=== PATIENT | female | born 1985 | race Caucasian/White ===

== ENCOUNTER 2018-01-25 11:14 | Emergency (ER) | payer OTHER ==
[2018-01-25] MEDS ORDERED: ONDANSETRON 4 MG/2 ML VIAL ONE (12:49)
[2018-01-25] MEDS ORDERED: MORPHINE 10 MG/ML VIAL ONE (12:49)
[2018-01-25] MEDS ORDERED: NA CHLORIDE 0.9% 500 ML ONE (12:49)
--- NOTE | 2018-01-25 12:52 | RAD REPORT ---
EXAM DESCRIPTION: CT - Stone Protocol - 01/25/2018 12:43 pm CLINICAL HISTORY: Flank pain. COMPARISON: 06/30/2013 TECHNIQUE: Axial images were obtained without oral or IV contrast. Lack of contrast limits solid org an and vascular assessment. The [id number] spans the entirety of the system partially obscuring uppermost abdomen and lung bases. Coronal reformatted images were obtained and reviewed. All CT scans are performed using dose optimization technique as appropriate and may include automated exposure control or mA/KV adjustment according to patient size. FINDINGS: The lower lung fagan are clear. Imaged portions of the liver and spleen show no suspicious findings on non-contrast imaging. The panc reas and adrenal glands are normal.Small fat containing umbilical hernia. No pathologic lymphadenopat hy in the abdomen or pelvis. No urinary tract stones or obstructive uropathy. No bowel obstruction, free air, free fluid or abscess. Normal appendix noted. No significant bony abnormality. IMPRESSION: No urinary tract stones or obstructive uropathy.
[2018-01-25 13:09] LABS: Glomerular Filtration Rate > 60 mL/min (>60)
[2018-01-25 13:10] LABS: Absolute Monocytes 0.8 K/uL (0.1-1.3); Absolute Neutrophil 4.5 K/uL (1.8-8.0); Basophils % 0.6 % (0-1.3); Hematocrit 42.1 % (36.0-45.0); Lymphocytes % 26.8 % (15.3-44.8); MCH 28.2 pg (27.0-35.0); MCV 81.6 fL (80-100); MPV 8.4 fL (7.6-11.3); Monocytes % 10.6 % (3.3-12.3); RBC Red Blood Cell Count 5.16 M/uL (3.86-4.86)
[2018-01-25 13:11] LABS: Bicarbonate 26 mEq/L (21-31); Glucose Level 93 mg/dL (65-120); Lipase 22 U/L (22-51); Potassium 3.9 mEq/L (3.6-5.0); Sodium Level 136 mEq/L (135-145)
[2018-01-25 13:17] LABS: ALT/SGPT 16 IU/L (10-60); AST/SGOT 25 IU/L (10-42); Albumin 4.1 g/dL (3.2-5.5); Alkaline Phosphatase 66 IU/L (42-121); BUN Blood Urea Nitrogen 13 mg/dL (6-20); Bilirubin Direct < 0.1 mg/dL (0-0.2); Bilirubin Total 0.4 mg/dL (0.3-1.2); Glomerular Filtration Rate 67 mL/min (=/>90); Protein, Total 8.3 g/dL (6.0-8.3)
[2018-01-25 13:19] LABS: Urine Bacteria >50 /HPF (<20); Urine Culture Reflex Order NOT NEEDED
[2018-01-25 13:20] LABS: Urine Blood 2+ (NEG); Urine Glucose NEGATIVE (NEG); Urine Protein NEGATIVE (NEG)
--- NOTE | 2018-01-25 17:35 | EDPHYS ---
Physician Documentation [facility] Name: Yamileth Bashir Age: 32 yrs Sex: Female : 1985 Arrival Date: 01/25/2018 Time: 11:15 Bed 16 Private MD: ED Physician Quentin Beaulieu HPI: 01/25 13:59 This 32 yrs old Female presents to ER via Ambulatory with complaints of Flank rn Pain. 13:59 The patient complains of pain in the right mid back. The pain radiates to the pelvis. rn Onset: The symptoms/episode began/occurred this morning. Associated signs and symptoms: Pertinent positives: nausea, Pertinent negatives: diarrhea, dizziness, dysuria, fever, urinary frequency, hematuria. The patient has experienced a previous episode. Reports right flank pain, wraps around to right groin, intermittent since this AM, has had this once before, told was UTI, no urinary symptoms, no vomiting/diarrhea. Not , has had multiple ectopic pregnancies but has had right sided tubal ligation.. 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 - Social history:: Smoking status: Patient uses tobacco products, smokes one pack cigarettes per day. - Family history:: not pertinent. - Hospitalizations: : No recent hospitalization is reported. ROS: 14:01 Constitutional: Negative for fever, chills, and weight loss, Eyes: Negative for injury, rn pain, redness, and discharge, Neck: Negative for injury, pain, and swelling, Cardiovascular: Negative for chest pain, palpitations, and edema, Respiratory: Negative for shortness of breath, cough, wheezing, and pleuritic chest pain, Abdomen/GI: Negative for vomiting, diarrhea, and constipation, Back: Negative for injury MS/Extremity: Negative for injury and deformity, Skin: Negative for injury, rash, and discoloration, Neuro: Negative for headache, weakness, numbness, tingling, and seizure. Exam: 14:01 Constitutional: This is a well developed, well nourished patient who is awake, alert, rn appears uncomfortable Head/Face: Normocephalic, atraumatic. Eyes: Pupils equal round and reactive to light, extra-ocular motions intact. Lids and lashes normal. Conjunctiva and sclera are non-icteric and not injected. Cornea within normal limits. Periorbital areas with no swelling, redness, or edema. Cardiovascular: Regular rate and rhythm with a normal S1 and S2. No gallops, murmurs, or rubs. Normal PMI, no JVD. No pulse deficits. Respiratory: Lungs have equal breath sounds bilaterally, clear to auscultation and percussion. No rales, rhonchi or wheezes noted. No increased work of breathing, no retractions or nasal flaring. Abdomen/GI: soft, + tenderness RLQ and suprapubic, no peritoneal signs Back: No spinal tenderness. No costovertebral tenderness. Full range of motion. MS/ Extremity: Pulses equal, no cyanosis. Neurovascular intact. Full, normal range of motion. Equal circumference. Neuro: Awake and alert, GCS 15, oriented to person, place, time, and situation. Cranial nerves II-XII grossly intact. Motor strength 5/5 in all extremities. Sensory grossly intact. Vital Signs: 11:38 BP 128 / 76; Pulse 83; Resp 16; Temp 97.0(TE); Pulse Ox 98% on R/A; Weight 97.52 kg lk1 (R); Height 5 ft. 3 in. (160.02 cm) (R); Pain 4/10; 13:04 BP 117 / 76; Pulse 65; Resp 18; Pulse Ox 98% on R/A; dh3 13:48 BP 115 / 51; Pulse 58; Resp 18; Pulse Ox 99% on R/A; ph 15:00 BP 120 / 72; Pulse 60; Resp 16; Pulse Ox 98% on R/A; ph 16:30 BP 118 / 68; Pulse 65; Resp 20; Pulse Ox 98% on R/A; ph 18:10 BP 122 / 78; Pulse 64; Resp 18; Temp 98.2; Pulse Ox 99% on R/A; ph 11:38 Body Mass Index 38.09 (97.52 kg, 160.02 cm) lk1 MDM: 12:19 Patient medically screened. rn 17:32 Differential diagnosis: nephrolithiasis, UTI. Data reviewed: vital signs, nurses notes, charge rn test result(s), radiologic studies, CT scan, ultrasound, and as a result, I will discharge patient. Counseling: I had a detailed discussion with the patient and/or guardian regarding: the historical points, exam findings, and any diagnostic results supporting the discharge/admit diagnosis, lab results, radiology results, the need for outpatient follow up, to return to the emergency department if symptoms worsen or persist or if there are any questions or concerns that arise at home. Response to treatment: the patient's symptoms have markedly improved after treatment. Special discussion: I discussed with the patient/guardian in detail that at this point there is no indication for admission to the hospital. It is understood, however, that if the symptoms persist or worsen the patient needs to return immediately for re-evaluation. 01/25 11:34 Order name: Urine Culture formerly [facility] 01/25 11:34 Order name: Urine Microscopic Only; Complete Time: 14:02 [facility] 01/25 12:10 Order name: Urine Dipstick--Ancillary (enter results); Complete Time: 14:02 01/25 12:25 Order name: Basic Metabolic Panel; Complete Time: 14:02 01/25 12:25 Order name: Creatinine for Radiology; Complete Time: 14:02 01/25 12:25 Order name: Hepatic Function; Complete Time: 14:02 01/25 12:25 Order name: Lipase; Complete Time: 14:02 01/25 12:25 Order name: CT Stone Protocol; Complete Time: 12:55 01/25 12:37 Order name: CBC with Automated Diff; Complete Time: 14:02 [facility] 01/25 12:37 Order name: Hepatitis Panel,Acute [facility] 01/25 11:34 Order name: Urine Test (obtain specimen); Complete Time: 11:59 [facility] 01/25 11:34 Order name: Urine Dipstick-Ancillary (obtain specimen); Complete Time: 11:59 [facility] 01/25 12:25 Order name: IV Saline Lock; Complete Time: 12:29 01/25 12:25 Order name: Labs collected and sent; Complete Time: 12:29 01/25 14:06 Order name: Transvaginal Study Probe EDNJ Administered Medications: 12:55 Drug: morphine 4 mg Route: IVP; Site: left antecubital; ph 13:30 Follow up: Response: No adverse reaction ph 12:55 Drug: Zofran 4 mg Route: IVP; Site: left antecubital; ph 13:30 Follow up: Response: No adverse reaction ph 12:55 Drug: NS 0.9% 500 ml Route: IV; Rate: bolus; Site: left antecubital; ph 13:30 Follow up: Response: No adverse reaction; IV Status: Completed infusion ph Disposition: 01/25/18 17:34 Discharged to Home. Impression: Lower abdominal pain, unspecified. - Condition is Stable. - Discharge Instructions: Abdominal Pain, Adult, Flank Pain, Pain Without a Known Cause, Abdominal Pain, Women. - Medication Reconciliation Form, Thank You Letter, Antibiotic Education, Prescription Opioid Use form. - Follow up: Private Physician; When: As needed; Reason: Recheck today's complaints, Re-evaluation by your physician. - Problem is new. - Symptoms have improved. Signatures: Dispatcher [employer] EDMS Chika Avendaño, SPAGHETTI MACHINE OPERATOR-C SPAGHETTI MACHINE OPERATOR-Csnw Quentin Beaulieu MD MD rn Hall, Patricia RN RN Ellie Bardales RN RN lk1 Corrections: (The following items were deleted from the chart) 12:40 12:35 CBC+H.LAB.BRZ ordered. EDMS EDMS 12:40 12:37 Basic Metabolic Panel ordered. EDMS EDMS 12:40 12:37 Lipase ordered. EDMS EDMS 14:06 14:03 Pelvis Complete+US.RAD.BRZ ordered. EDMS EDMS
--- NOTE | 2018-01-25 17:35 | ER ---
Nurse's Notes [facility] Name: Yamileth Bashir Age: 32 yrs Sex: Female : 1985 Arrival Date: 01/25/2018 Time: 11:15 Bed 16 Private MD: Diagnosis: Lower abdominal pain, unspecified Presentation: 01/25 11:35 Presenting complaint: Patient states: "I am having pain back here (right flank) around lk1 to my lower stomach.". Transition of care: patient was not received from another setting of care. Initial Sepsis Screen: Does the patient meet any 2 criteria? No. Patient's initial sepsis screen is negative. Does the patient have a suspected source of infection? No. Patient initial sepsis screen negative. Onset of symptoms was January 25, 2018 at 09:00. Care prior to arrival: None. 11:35 Method Of Arrival: Ambulatory lk1 11:35 Acuity: SORAYA 3 lk1 Triage Assessment: 11:37 General: Appears uncomfortable, Behavior is calm, cooperative, appropriate for age. lk1 Pain: Complains of pain in right flank Pain radiates to suprapubic area and right lower quadrant Pain currently is 4 out of 10 on a pain scale. at worst was 8 out of 10 on a pain scale. 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 - Social history:: Smoking status: Patient uses tobacco products, smokes one pack cigarettes per day. - Family history:: not pertinent. - Hospitalizations: : No recent hospitalization is reported. Screenin:00 Abuse screen: Denies threats or abuse. Denies injuries from another. Nutritional ph screening: No deficits noted. Tuberculosis screening: No symptoms or risk factors identified. Fall Risk None identified. Assessment: 12:30 General: Appears in no apparent distress. uncomfortable, obese, well groomed, Behavior ph is calm, cooperative, appropriate for age, Denies fever, feeling ill. Pain: Complains of pain in right mid back and right low back Pain radiates to right lower quadrant and right flank Quality of pain is described as sharp, stabbing, Pain began suddenly, Is intermittent. Neuro: Level of Consciousness is awake, alert, obeys commands, Oriented to person, place, time, situation. Cardiovascular: Capillary refill < 3 seconds Patient's skin is warm and dry. Respiratory: Airway is patent Respiratory effort is even, unlabored, Respiratory pattern is regular, symmetrical. GI: Abdomen is round non-distended, Bowel sounds present X 4 quads. Abd is soft X 4 quads Abdomen is tender to palpation in right lower quadrant Reports lower abdominal pain, nausea, Patient currently denies diarrhea, vomiting. Derm: Skin is intact, is healthy with good turgor, Skin is pink, warm \\T\\ dry. Musculoskeletal: Circulation, motion, and sensation intact. Range of motion: intact in all extremities. 13:47 Reassessment: Patient appears in no apparent distress at this time. Patient and/or ph family updated on plan of care and expected duration. Pain level reassessed. Patient is alert, oriented x 3, equal unlabored respirations, skin warm/dry/pink. Pt states that nausea has improved, rates pain 5/10 at this time, awaiting lab results, SO at bedside. 15:00 Reassessment: Patient appears in no apparent distress at this time. Patient and/or ph family updated on plan of care and expected duration. Pain level reassessed. Patient is alert, oriented x 3, equal unlabored respirations, skin warm/dry/pink. taken to US via wheelchair, SO at bedside. 16:00 Reassessment: Patient appears in no apparent distress at this time. Patient and/or ph family updated on plan of care and expected duration. Pain level reassessed. Patient is alert, oriented x 3, equal unlabored respirations, skin warm/dry/pink. Awaiting US results, SO at bedside. 17:30 Reassessment: Patient appears in no apparent distress at this time. No changes from ph previously documented assessment. Patient and/or family updated on plan of care and expected duration. Pain level reassessed. Patient is alert, oriented x 3, equal unlabored respirations, skin warm/dry/pink. 18:30 Reassessment: Patient appears in no apparent distress at this time. No changes from ph previously documented assessment. Patient and/or family updated on plan of care and expected duration. Pain level reassessed. Patient is alert, oriented x 3, equal unlabored respirations, skin warm/dry/pink. Awaiting discharge. Vital Signs: 11:38 BP 128 / 76; Pulse 83; Resp 16; Temp 97.0(TE); Pulse Ox 98% on R/A; Weight 97.52 kg lk1 (R); Height 5 ft. 3 in. (160.02 cm) (R); Pain 4/10; 13:04 BP 117 / 76; Pulse 65; Resp 18; Pulse Ox 98% on R/A; dh3 13:48 BP 115 / 51; Pulse 58; Resp 18; Pulse Ox 99% on R/A; ph 15:00 BP 120 / 72; Pulse 60; Resp 16; Pulse Ox 98% on R/A; ph 16:30 BP 118 / 68; Pulse 65; Resp 20; Pulse Ox 98% on R/A; ph 18:10 BP 122 / 78; Pulse 64; Resp 18; Temp 98.2; Pulse Ox 99% on R/A; ph 11:38 Body Mass Index 38.09 (97.52 kg, 160.02 cm) lk1 ED Course: 11:15 Patient arrived in ED. as 11:36 Triage completed. lk1 11:39 Arm band placed on right wrist. lk1 11:59 Urine collected: clean catch specimen, clear. dh3 12:19 Quentin Beaulieu MD is Attending Physician. rn 12:28 Helena López RN is Primary Nurse. ph 12:41 CT completed. Patient tolerated procedure well. Patient moved to NC via wheelchair. jg1 Patient moved back from NC. 12:43 CT Stone Protocol In Process Unspecified. EDMS 12:45 Inserted saline lock: 20 gauge in left antecubital area, using aseptic technique. Blood ph collected. 12:59 Patient has correct armband on for positive identification. Bed in low position. Call ph light in reach. Side rails up X 1. Pulse ox on. NIBP on. Warm blanket given. 15:04 Transvaginal Study Probe In Process Unspecified. EDMS 16:49 No provider procedures requiring assistance completed. ph 18:40 IV discontinued, intact, bleeding controlled, No redness/swelling at site. Pressure ph dressing applied. Administered Medications: 12:55 Drug: morphine 4 mg Route: IVP; Site: left antecubital; ph 13:30 Follow up: Response: No adverse reaction ph 12:55 Drug: Zofran 4 mg Route: IVP; Site: left antecubital; ph 13:30 Follow up: Response: No adverse reaction ph 12:55 Drug: NS 0.9% 500 ml Route: IV; Rate: bolus; Site: left antecubital; ph 13:30 Follow up: Response: No adverse reaction; IV Status: Completed infusion ph Outcome: 17:34 Discharge ordered by MD. rn 18:42 Patient left the ED. ph 18:42 Discharged to home ambulatory, with significant other. ph 18:42 Condition: good 18:42 Discharge instructions given to patient, Instructed on discharge instructions, follow up and referral plans. Demonstrated understanding of instructions, follow-up care. Signatures: Dispatcher [employer] Vicki Gonzalez Amelia as Nieto, Roman, MD MD rn Hall, Patricia, RN RN ph Kluge, Leah, RN RN [facility] Jackie Figueroa 3 Corrections: (The following items were deleted from the chart) 14:52 13:04 BP 115 / 51; Pulse 68bpm; Resp 18bpm; Pulse Ox 98% RA; ph dh3
--- NOTE | 2018-01-25 18:43 | RAD REPORT ---
EXAM DESCRIPTION: US - Transvaginal Study Probe - 01/25/2018 3:13 pm CLINICAL HISTORY: Pelvic pain, possible torsion COMPARISON: None. TECHNIQUE: Endovaginal sonography was performed. FINDINGS: Endometrium is 2-3 mm in maximum thickness. No endometrial abnormality. Endometrium-myomet rium interface is normal with no myometrial mass. Uterus is 8.4 x 4.8 x 5.1 cm. Both ovaries are identifiable. Small sub centimeter follicles are seen. No dominant solid or cystic o varian or adnexal finding. No free fluid in the cul-de-sac. Doppler evaluation is difficult given the small size of the ovaries. No vascular abnormality seen. There are no direct or indirect findings to suspect torsion. IMPRESSION: Endovaginal pelvic ultrasound shows no significant or suspicious finding. No abnormality to suspect torsion.
[2018-01-27 19:43] LABS: HBsAG Nonreactive (Nonreactive); Hepatitis A IgM Antibody Nonreactive
== END 2018-01-25 18:42 | disposition home or self-care (01) ==
LOC: ER 11:14
DX: R10.30 Lower abdominal pain, unspecified (principal); F17.210 Nicotine dependence, cigarettes, uncomplicated
CPT/HCPCS: 36415; 74176; 76377; 76830; 80048; 80074; 80076; 81003; 81015; 83690; 85025; 87086; 87088; 96361; 96374; 96375; 99284; J2405

== ENCOUNTER 2019-06-29 13:08 | Emergency (ER) | payer BC, OTHER ==
--- OUTSIDE RECORDS SUMMARY | 2019-06-29 13:11 | XMS REPORT | Clinical Summary ---
:1985 Author Organization [facility] Address [address] [place] [id number] Care Team Providers Name Role Phone Helena Garcia MD Primary Care Provider Allergies No Known Allergies Medications Medication Sig Dispensed Refills Start Date End Date Status scopolamine Place 1 patch on 4 patch 0 04/04/2019 Active (TRANSDERM-SCOP) 1 mg the skin every over 3 days third day. Active Problems No known active problems Encounters Date Type Specialty Care Team Description 06/29/2019 Telephone Family Medicine Dinah Lovelace, TAE 04/04/2019 Telephone Family Medicine Helena Garcia MD after 06/28/2018 Family History Medical History Relation Name Comments COPD Father Heart disease Father Relation Name Status Comments Father Alive Social History Tobacco Use Types Packs/Day Years Used Date Current Every Day Smoker 1 Smokeless Tobacco: Never Used Alcohol Use Drinks/Week oz/Week Comments No Sex Assigned at Date Recorded Not on file Job Start Date Occupation Industry Not on file Not on file Not on file Travel History Travel Start Travel End No recent travel history available. Last Filed Vital Signs Not on file Plan of Treatment Health Maintenance Due Date Last Done Comments CERVICAL CANCER SCREENING 2005 INFLUENZA VACCINE 05/12/2019 Results Not on fileafter 06/28/2018 Advance Directives For more information, please contact: [phone] Type Date Recorded Patient Prevention Specialist Explanation Advance Directives, Living Will and Medical Power of Tag Writer
--- NOTE | 2019-06-29 14:30 | ER ---
Nurse's Notes [facility] Name: Yamileth Bashir Age: 33 yrs Sex: Female : 1985 Arrival Date: 06/29/2019 Time: 13:12 Bed 26 Private MD: Diagnosis: Pain in left shoulder Presentation: 06/29 13:36 Presenting complaint: Left shoulder pain x 2 weeks, left sided neck swelling today. hb Transition of care: patient was not received from another setting of care. Onset of symptoms was June 2019. Risk Assessment: Do you want to hurt yourself or someone else? Patient reports no desire to harm self or others. Initial Sepsis Screen: Does the patient meet any 2 criteria? No. Patient's initial sepsis screen is negative. Does the patient have a suspected source of infection? No. Patient's initial sepsis screen is negative. Care prior to arrival: None. 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 - Social history:: Smoking status: Patient uses tobacco products, smokes one pack cigarettes per day. - Ebola Screening: : No symptoms or risks identified at this time. Screenin:36 Abuse screen: Denies threats or abuse. Denies injuries from another. Nutritional rv screening: No deficits noted. Tuberculosis screening: No symptoms or risk factors identified. Fall Risk None identified. Assessment: 14:25 General: Appears in no apparent distress. uncomfortable, Behavior is calm, cooperative. rv 14:25 Pain: Complains of pain in left shoulder. Neuro: Level of Consciousness is awake, rv alert, obeys commands, Oriented to person, place, time, situation. Cardiovascular: Patient's skin is warm and dry. Respiratory: Airway is patent. GI: No signs and/or symptoms were reported involving the gastrointestinal system. : No signs and/or symptoms were reported regarding the genitourinary system. EENT: No signs and/or symptoms were reported regarding the EENT system. Derm: Skin is intact. Musculoskeletal: Range of motion: limited in left shoulder Swelling absent. Vital Signs: 13:37 BP 139 / 100; Pulse 79; Resp 16; Temp 98.2; Pulse Ox 100% on R/A; Weight 99.79 kg; hb Height 5 ft. 3 in. (160.02 cm); Pain 6/10; 14:36 BP 127 / 98; Pulse 76; Resp 15; Temp 98; Pulse Ox 100% ; rv 13:37 Body Mass Index 38.97 (99.79 kg, 160.02 cm) hb ED Course: 13:12 Patient arrived in ED. rg4 13:37 Triage completed. hb 13:38 Arm band placed on. hb 13:42 Ta Ashford PA is PHCP. cp 13:42 Jae Lezama MD is Attending Physician. cp 14:13 Jerome Vega, TAE is Primary Nurse. rv 14:14 XRAY Shoulder LEFT 2 view In Process Unspecified. EDMS 14:25 Patient has correct armband on for positive identification. Bed in low position. Call rv light in reach. Side rails up X 1. 14:25 Pulse ox on. NIBP on. rv 14:27 Nilesh Shoemaker MD is Referral Physician. cp 14:37 No provider procedures requiring assistance completed. Patient did not have IV access rv during this emergency room visit. Administered Medications: No medications were administered Outcome: 14:28 Discharge ordered by . cp 14:37 Discharged to home ambulatory, with family. rv 14:37 Condition: good 14:37 Discharge instructions given to patient, Instructed on discharge instructions, follow up and referral plans. medication usage, Demonstrated understanding of instructions, follow-up care, medications, Prescriptions given X 2. 14:38 Patient left the ED. rv Signatures: Dispatcher [employer] EDMS Ta Ashford PA PA cp Baxter, Heather, RN RN Annelise Rodgers rg4 Jerome Vega RN RN rv
--- NOTE | 2019-06-29 14:31 | EDPHYS ---
Physician Documentation [facility] Name: Yamileth Bashir Age: 33 yrs Sex: Female : 1985 Arrival Date: 06/29/2019 Time: 13:12 Bed 26 Private MD: ED Physician Jae Lezama HPI: 06/29 13:55 This 33 yrs old Female presents to ER via Ambulatory with complaints of cp Shoulder Pain. 13:55 The patient or guardian complains of pain, that is acute. left shoulder. cp 13:55 Context: resulted from an unknown reason, The patient reports no decreased range of cp motion. 13:55 Onset: The symptoms/episode began/occurred 2 week(s) ago. Modifying factors: The cp symptoms are aggravated by movement. Associated signs and symptoms: Pertinent negatives: chest pain, Numbness in left arm and left shoulder. Severity of symptoms: in the emergency department the symptoms are unchanged, despite home interventions. LOT BOSS: 14:36 LMP 06/29/2019 rv Historical: - Allergies: 13:38 No Known Allergies; hb - Home Meds: 13:38 None [Active]; hb - PMHx: 13:38 ectopic right tube; hb - PSHx: 13:38 Tubal ligation; right fallopian tube removed; hb - Immunization history:: Adult Immunizations up to date. - Social history:: Smoking status: Patient uses tobacco products, smokes one pack cigarettes per day. - Ebola Screening: : No symptoms or risks identified at this time. ROS: 14:00 Constitutional: Negative for body aches, chills, fever, poor PO intake. cp 14:00 Eyes: Negative for injury, pain, redness, and discharge. cp 14:00 ENT: Negative for drainage from ear(s), ear pain. 14:00 Neck: Positive for pain with movement, pain at rest, swelling, of the left lateral neck, Negative for injury or acute deformity. 14:00 Cardiovascular: Negative for chest pain, edema, palpitations. 14:00 Respiratory: Negative for cough, shortness of breath, wheezing. 14:00 MS/extremity: Positive for pain, tenderness, of the left shoulder, Negative for injury or acute deformity, decreased range of motion, deformity, paresthesias. 14:00 Skin: Negative for cellulitis, rash. 14:00 All other systems are negative. Exam: 14:05 Constitutional: The patient appears in no acute distress, alert, awake, cp non-diaphoretic, non-toxic, well developed, well nourished. 14:05 Head/Face: Normocephalic, atraumatic. cp 14:05 Chest/axilla: Inspection: normal, Palpation: is normal, no crepitus, no tenderness. 14:05 Cardiovascular: Rate: normal, Rhythm: regular, Pulses: Pulses are 2+ in right radial artery and left radial artery. 14:05 Respiratory: the patient does not display signs of respiratory distress, Respirations: normal, no use of accessory muscles, no retractions, no splinting, no tachypnea, labored breathing, is not present, Breath sounds: are clear throughout, no decreased breath sounds, no stridor, no wheezing. 14:05 Musculoskeletal/extremity: ROM: full passive range of motion, in the left shoulder, limited passive range of motion due to pain, in the left shoulder, Perfusion: the extremity is normally perfused throughout, Sensation intact. Joints: All joints are normal except the left shoulder displays tenderness. 14:05 Skin: no rash present. Vital Signs: 13:37 BP 139 / 100; Pulse 79; Resp 16; Temp 98.2; Pulse Ox 100% on R/A; Weight 99.79 kg; hb Height 5 ft. 3 in. (160.02 cm); Pain 6/10; 14:36 BP 127 / 98; Pulse 76; Resp 15; Temp 98; Pulse Ox 100% ; rv 13:37 Body Mass Index 38.97 (99.79 kg, 160.02 cm) hb MDM: 13:48 Patient medically screened. cp 13:55 Differential diagnosis: tendonitis, rotator cuff injury, strain. cp 14:27 Data reviewed: vital signs, nurses notes, radiologic studies, plain films. cp 14:27 Test interpretation: by ED physician or midlevel provider: plain radiologic studies, cp xrays left shoulder negative for fracture or dislocation. Counseling: I had a detailed discussion with the patient and/or guardian regarding: the historical points, exam findings, and any diagnostic results supporting the discharge/admit diagnosis, radiology results, the need for outpatient follow up, a orthopedic surgeon, to return to the emergency department if symptoms worsen or persist or if there are any questions or concerns that arise at home. 09/18 14:38 Order name: Test, Urine EDMS 06/29 13:52 Order name: XRAY Shoulder LEFT 2 view cp 06/29 13:52 Order name: Urine Dipstick-Ancillary (obtain specimen); Complete Time: 14:38 cp 06/29 13:52 Order name: Urine Test (obtain specimen); Complete Time: 14:38 cp 06/29 14:29 Order name: Sling; Complete Time: 14:38 cp Administered Medications: No medications were administered Disposition: 06/30 13:47 Co-signature as Attending Physician, Jae Lezama MD I agree with the assessment and kdr plan of care. Disposition: 06/29/19 14:28 Discharged to Home. Impression: Pain in left shoulder. - Condition is Stable. - Discharge Instructions: Shoulder Pain, Shoulder Range of Motion Exercises. - Prescriptions for Cyclobenzaprine 10 mg Oral Tablet - take 1 tablet by ORAL route every 8 hours As needed no driving while taking medication; 20 tablet. Diclofenac Sodium 75 mg Oral Tablet Sustained Release - take 1 tablet by ORAL route 2 times per day; 30 tablet. - Medication Reconciliation Form, Thank You Letter, Antibiotic Education, Prescription Opioid Use form. - Follow up: Nilesh Shoemaker MD; When: 2 - 3 days; Reason: left shoulder pain. - Problem is new. - Symptoms have improved. Signatures: Dispatcher [employer] EDOH Jae Lezama MD MD [facility] Ta Ashford PA PA cp Humaira Noland, TAE RN Jerome Vega RN RN rv Corrections: (The following items were deleted from the chart) 06/29 14:38 14:28 06/29/2019 14:28 Discharged to Home. Impression: Pain in left shoulder. Condition rv is Stable. Forms are Medication Reconciliation Form, Thank You Letter, Antibiotic Education, Prescription Opioid Use. Follow up: Nilesh Shoemaker; When: 2 - 3 days; Reason: left shoulder pain. Problem is new. Symptoms have improved. cp
--- NOTE | 2019-06-29 14:34 | RAD REPORT ---
EXAM DESCRIPTION: RAD - Shoulder Left 2 View - 06/29/2019 2:12 pm CLINICAL HISTORY: Left shoulder pain FINDINGS: No fracture or dislocation is seen. Minimal narrowing of the AC joint
[2019-06-29 14:54] VITALS: O2SAT 100
[2019-06-29 14:55] LABS: Specific Gravity 1.015 (1.005-1.030); Urine Appearance CLOUDY; Urine Bilirubin NEGATIVE (NEG); Urine Blood 3+ (NEG); Urine Color RED; Urine Glucose NEGATIVE (NEG); Urine Protein 1+ (NEG); Urine Specific Gravity 1.015 (1.005-1.030)
[2019-06-29 14:57] LABS: Urine Microscopic Reflex ORDER UMIC
[2019-06-29 15:05] VITALS: BP 127/98; TEMP 98
[2019-06-29 15:10] LABS: Urine Bacteria <20 /HPF (<20); Urine Culture Reflex Order REFLEXED; Urine Mucus 2+ /HPF (NONE SEEN); Urine RBC TNTC /HPF (NONE SEEN)
== END 2019-06-29 14:38 | disposition home or self-care (01) ==
LOC: ER 13:08
DX: M25.512 Pain in left shoulder (principal); F17.210 Nicotine dependence, cigarettes, uncomplicated
CPT/HCPCS: 81003; 81015; 81025; 87086; 87088; 99283

== ENCOUNTER 2019-09-29 20:01 | Emergency (ER) | payer BC ==
[2019-09-29] MEDS ORDERED: MORPHINE 4 MG/ML SYR ONE (20:38)
[2019-09-29] MEDS ORDERED: ONDANSETRON 4 MG/2 ML VIAL ONE (20:38)
[2019-09-29 20:49] LABS: Absolute Lymphocytes (CBC) 2.3 K/uL (0.7-4.9); Basophils % 0.8 % (0-1.3); Hematocrit 41.3 % (36.0-45.0); Lymphocytes % 27.7 % (15.3-44.8); MPV 8.3 fL (7.6-11.3); RBC Red Blood Cell Count 5.02 M/uL (3.86-4.86)
[2019-09-29 20:56] LABS: Urine Blood 1+ (NEG); Urine Glucose NEGATIVE (NEG); Urine Protein NEGATIVE (NEG); Urine Specific Gravity 1.025 (1.005-1.030); Urine pH 5.5 (5.0-7.0)
[2019-09-29] MEDS ORDERED: DIPHENHYDRAMINE 50 MG/ML VIAL ONE (20:59)
[2019-09-29] MEDS ORDERED: FAMOTIDINE 20 MG/2 ML VIAL IV ONE (20:59)
[2019-09-29 21:11] LABS: Albumin 3.4 g/dL (3.4-5.0); Bilirubin Total 0.2 mg/dL (0.2-1.0); Potassium 3.7 mmol/L (3.5-5.1); Protein, Total 7.6 g/dL (6.4-8.2)
[2019-09-29] MEDS ORDERED: KETOROLAC 30 MG/ML INJ ONE (22:14)
--- NOTE | 2019-09-29 22:46 | ER ---
Nurse's Notes [facility] Name: Yamileth Bashir Age: 33 yrs Sex: Female : 1985 Arrival Date: 09/29/2019 Time: 20:02 Bed 6 Private MD: Diagnosis: Acute sinusitis Presentation: 09/29 20:13 Presenting complaint: Patient states: pain in her R ear and R side of her neck and jaw aa1 x 1 week. Transition of care: patient was not received from another setting of care. Onset of symptoms was September 22, 2019. Risk Assessment: Do you want to hurt yourself or someone else? Patient reports no desire to harm self or others. Initial Sepsis Screen: Does the patient meet any 2 criteria? No. Patient's initial sepsis screen is negative. Does the patient have a suspected source of infection? No. Patient's initial sepsis screen is negative. Care prior to arrival: None. 20:13 Method Of Arrival: Ambulatory aa1 20:13 Acuity: SORAYA 4 aa1 Triage Assessment: 20:17 General: Appears in no apparent distress. uncomfortable, Behavior is calm, cooperative, aa1 appropriate for age. 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 - Social history:: Smoking status: Patient uses tobacco products, smokes one pack cigarettes per day. - Ebola Screening: : Patient denies exposure to infectious person Patient denies travel to an Ebola-affected area in the 21 days before illness onset. Screenin:40 Abuse screen: Denies threats or abuse. Denies injuries from another. Nutritional lp1 screening: No deficits noted. Tuberculosis screening: No symptoms or risk factors identified. Fall Risk None identified. Assessment: 20:30 General: Appears uncomfortable, Behavior is appropriate for age. Pain: Complains of lp1 pain in right jaw and right sternocleidomastoid Pain currently is 9 out of 10 on a pain scale. Quality of pain is described as shooting, stabbing. Neuro: Level of Consciousness is awake, alert, obeys commands, Oriented to person, place, time, situation. Cardiovascular: Patient's skin is warm and dry. Respiratory: Respiratory effort is even, unlabored. GI: No deficits noted. : No deficits noted. EENT: Oral mucosa is moist. Good dentition noted. Derm: Skin is pink, warm \T\ dry. Musculoskeletal: No deficits noted. 20:37 Reassessment: Provider notified of patient complaint of pain to right jaw, right side lp1 of neck; Verbal order for Zofran 4mg IV x1, Morphine 4mg IV x1. 20:50 Reassessment: Patient noted to have swelling, redness beside IV site, denies any lp1 itching, shortness of breath; provider notified; IV to R AC flushed with saline, good blood return noted. 21:54 Reassessment: Patient returned from CT; States continued pain, provider notified. lp1 22:10 Reassessment: Verbal order from Provider for Toradol 15mg IV x1. lp1 22:55 Reassessment: Patient appears in no apparent distress at this time. Patient is alert, lp1 oriented x 3, equal unlabored respirations, skin warm/dry/pink. Patient states feeling better. Vital Signs: 20:17 BP 139 / 92; Pulse 89; Resp 18; Temp 98.3; Pulse Ox 100% on R/A; Weight 99.79 kg; aa1 Height 5 ft. 3 in. (160.02 cm); Pain 5/10; 21:00 BP 123 / 67; Pulse 75; Resp 18; Pulse Ox 100% on R/A; lp1 22:55 BP 136 / 84; Pulse 78; Resp 18; Pulse Ox 100% on R/A; lp1 20:17 Body Mass Index 38.97 (99.79 kg, 160.02 cm) aa1 ED Course: 20:02 Patient arrived in ED. cl3 20:06 Christiano Pickering PA is PHCP. jmm 20:06 Lonnie Holm MD is Attending Physician. jmm 20:14 Triage completed. aa1 20:17 Arm band placed on right wrist. aa1 20:22 Suzie Masterson, TAE is Primary Nurse. lp1 20:30 Inserted saline lock: 22 gauge in right antecubital area, using aseptic technique. lp1 Blood collected. 20:40 Patient has correct armband on for positive identification. lp1 21:24 PHCP role handed off by Christiano Pickering PA kb 21:24 Yun Lerma FNP-C is PHCP. kb 21:43 CT completed. Patient tolerated procedure well. Patient moved back from CT. nj 22:03 CT Soft Tissue Neck W/contr In Process Unspecified. EDMS 22:54 No provider procedures requiring assistance completed. IV discontinued, No lp1 redness/swelling at site. Pressure dressing applied. Administered Medications: 20:41 Drug: Zofran 4 mg Route: IVP; Site: right antecubital; lp1 22:17 Follow up: Response: No adverse reaction lp1 20:41 Drug: morphine 4 mg {Note: RASS 1.} Route: IVP; Site: right antecubital; lp1 21:30 Follow up: Response: No change in condition lp1 21:04 Drug: diphenhydrAMINE 25 mg Route: IVP; Site: right antecubital; lp1 22:18 Follow up: Response: Marked relief of symptoms lp1 21:05 Drug: Pepcid 20 mg Route: IVP; Site: right antecubital; lp1 22:18 Follow up: Response: Marked relief of symptoms lp1 22:17 Drug: TORadol - Ketorolac 15 mg Route: IVP; Site: right antecubital; lp1 22:55 Follow up: Response: Pain is decreased lp1 Outcome: 22:45 Discharge ordered by MD. kb 22:54 Discharged to home ambulatory, with significant other. lp1 22:54 Condition: good 22:54 Discharge instructions given to patient, Instructed on discharge instructions, follow up and referral plans. Demonstrated understanding of instructions, follow-up care. 22:56 Patient left the ED. lp1 Signatures: Dispatcher [employer] EDMS Yun Lerma FNP-C FNP-Ckb Autenrieth, Alissa, RN RN aa1 Christiano Pickering PA PA jmm Pena, Laura, RN RN lp1 Jovanni Cates Charde cl3
--- NOTE | 2019-09-29 22:46 | EDPHYS ---
Physician Documentation [facility] Name: Yamileth Bashir Age: 33 yrs Sex: Female : 1985 Arrival Date: 09/29/2019 Time: 20:02 Bed 6 Private MD: ED Physician Lonnie Holm HPI: 09/29 20:18 This 33 yrs old Female presents to ER via Ambulatory with complaints of Ear jmm Pain, Jaw Pain. 20:18 The patient or guardian complains of pain. Onset: The symptoms/episode began/occurred 1 jmm week(s) ago. Associated signs and symptoms: Pertinent negatives: fever. The pain radiates to the face. Modifying factors: The symptoms are alleviated by nothing. the symptoms are aggravated by movement, pressure. This is a 33 year old female with no chronic medical conditions that presents to the ED with complaints of right sided facial pain which initially began as right sided neck pain. Symptoms have been ongoing for the past week. Symptoms are worse in the submandibular region. . 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 - Social history:: Smoking status: Patient uses tobacco products, smokes one pack cigarettes per day. - Ebola Screening: : Patient denies exposure to infectious person Patient denies travel to an Ebola-affected area in the 21 days before illness onset. ROS: 20:18 Constitutional: Negative for fever, chills, and weight loss. jmm 20:18 Abdomen/GI: Negative for abdominal pain, nausea, vomiting, diarrhea, and constipation, Back: Negative for injury and pain, Neuro: Negative for headache, weakness, numbness, tingling, and seizure. 20:18 Neck: Positive for pain with movement. 20:18 All other systems are negative. Exam: 20:18 Constitutional: This is a well developed, well nourished patient who is awake, alert, jmm and in no acute distress. Head/Face: atraumatic. Eyes: EOMI, no conjunctival erythema appreciated ENT: Moist Mucus Membranes 20:18 Chest/axilla: Normal chest wall appearance and motion. Cardiovascular: Regular rate and rhythm. No edema appreciated Respiratory: Normal respirations, no respiratory distress appreciated Abdomen/GI: Non distended, soft Back: Normal ROM Skin: General appearance color normal MS/ Extremity: Moves all extremities, no obvious deformities appreciated, no edema noted to the lower extremities Neuro: Awake and alert, normal gait Psych: Behavior is normal, Mood is normal, Patient is cooperative and pleasant 20:18 ENT: . 20:18 Neck: right submandibular tenderness. Vital Signs: 20:17 BP 139 / 92; Pulse 89; Resp 18; Temp 98.3; Pulse Ox 100% on R/A; Weight 99.79 kg; aa1 Height 5 ft. 3 in. (160.02 cm); Pain 5/10; 21:00 BP 123 / 67; Pulse 75; Resp 18; Pulse Ox 100% on R/A; lp1 22:55 BP 136 / 84; Pulse 78; Resp 18; Pulse Ox 100% on R/A; lp1 20:17 Body Mass Index 38.97 (99.79 kg, 160.02 cm) aa1 MDM: 20:18 Patient medically screened. [facility] 22:43 Data reviewed: vital signs, nurses notes. Data interpreted: Pulse oximetry: on room air kb is 100 %. Interpretation: normal. Counseling: I had a detailed discussion with the patient and/or guardian regarding: the historical points, exam findings, and any diagnostic results supporting the discharge/admit diagnosis, lab results, radiology results, the need for outpatient follow up, a family practitioner, to return to the emergency department if symptoms worsen or persist or if there are any questions or concerns that arise at home. 09/29 20:19 Order name: CMP [facility] 09/29 20:19 Order name: CBC with Diff; Complete Time: 20:58 [facility] 09/29 20:19 Order name: CT Soft Tissue Neck W/contr [facility] 09/29 20:25 Order name: Comprehensive Metabolic Panel; Complete Time: 21:12 [facility] 09/29 20:34 Order name: Urine Dipstick--Ancillary (enter results); Complete Time: 21:07 cm6 09/29 20:34 Order name: Urine --Ancillary (enter results); Complete Time: 21:07 cm6 09/29 20:19 Order name: Saline Lock; Complete Time: 20:37 [facility] 09/29 20:19 Order name: Urine Test (obtain specimen); Complete Time: 20:37 [facility] Administered Medications: 20:41 Drug: Zofran 4 mg Route: IVP; Site: right antecubital; lp1 22:17 Follow up: Response: No adverse reaction lp1 20:41 Drug: morphine 4 mg {Note: RASS 1.} Route: IVP; Site: right antecubital; lp1 21:30 Follow up: Response: No change in condition lp1 21:04 Drug: diphenhydrAMINE 25 mg Route: IVP; Site: right antecubital; lp1 22:18 Follow up: Response: Marked relief of symptoms lp1 21:05 Drug: Pepcid 20 mg Route: IVP; Site: right antecubital; lp1 22:18 Follow up: Response: Marked relief of symptoms lp1 22:17 Drug: TORadol - Ketorolac 15 mg Route: IVP; Site: right antecubital; lp1 22:55 Follow up: Response: Pain is decreased lp1 Disposition: 09/30 06:52 Co-signature as Attending Physician, Lonnie Holm MD I agree with the assessment and tw4 plan of care. Disposition: 09/29/19 22:45 Discharged to Home. Impression: Acute sinusitis. - Condition is Stable. - Discharge Instructions: Sinusitis, Adult, [id number]. - Medication Reconciliation Form, Thank You Letter, Antibiotic Education, Prescription Opioid Use form. - Follow up: Emergency Department; When: As needed; Reason: Worsening of condition. Follow up: Private Physician; When: 2 - 3 days; Reason: Recheck today's complaints, Continuance of care, Re-evaluation by your physician. Signatures: Dispatcher [employer] EDYun Gomez FNP-C FNP-Ann Marie Trivedi RN RN olaf1 Christiano Pickering PA PA jmm Suzie Masterson RN RN lp1 Lonnie Holm MD MD tw4 Corrections: (The following items were deleted from the chart) 09/29 22:56 22:45 09/29/2019 22:45 Discharged to Home. Impression: Acute sinusitis. Condition is lp1 Stable. Forms are Medication Reconciliation Form, Thank You Letter, Antibiotic Education, Prescription Opioid Use. Follow up: Emergency Department; When: As needed; Reason: Worsening of condition. Follow up: Private Physician; When: 2 - 3 days; Reason: Recheck today's complaints, Continuance of care, Re-evaluation by your physician. kb
--- NOTE | 2019-09-30 11:38 | RAD REPORT ---
EXAM DESCRIPTION: CT - Soft Tissue Neck W/Contr - 09/30/2019 2:03 am CLINICAL HISTORY: Right sided neck pain TECHNIQUE: Contiguous axial images obtained through the neck following the uneventful administration of IV contrast. Coronal and sagittal reformatted images were provided. This exam was performed according to our departmental dose-optimization program, which includes autom ated exposure control, adjustment of the mA and/or kV according to patient size and/or use of iterati ve reconstruction technique. COMPARISON: None available for comparison FINDINGS: Oropharynx: Unremarkable. No significant tonsillar enlargement. No peritonsillar abscess. Hypopharynx: Unremarkable Larynx: Unremarkable. Normal epiglottis. Trachea: Unremarkable Retropharyngeal space: Unremarkable Submandibular/parotid glands: Unremarkable. Normal in size. Thyroid: Unremarkable Bones/joints: Mild to moderate degenerative changes at C5-C6. Soft tissues: Unremarkable Vessels: Unremarkable Lymph nodes: Bilateral cervical lymph nodes measuring up to 12 mm in short axis. Paranasal sinuses: Well-aerated Mastoid air cells: Well-aerated Lung apices: Unremarkable as visualized Mediastinum: Unremarkable as visualized IMPRESSION: No acute abnormality. Electronically signed by: Raffi Carrizales MD 09/29/2019 10:26 PM WASTE RECLAIMER Due to temporary technical issues with the PACS/Fluency reporting system, reports are being signed by the in house radiologist as a courtesy to ensure prompt reporting. The interpreting radiologist is f ully responsible for the content of the report.
== END 2019-09-29 22:56 | disposition home or self-care (01) ==
LOC: ER 20:01
DX: J01.90 Acute sinusitis, unspecified (principal); F17.210 Nicotine dependence, cigarettes, uncomplicated
CPT/HCPCS: 85025; 36415; 81025; 81003; 80053; 70491; 96375; 96374; 99284; Q9967; J1200; J2405

== ENCOUNTER 2023-07-18 04:29 | Emergency (ER) | payer SELFPAY ==
--- OUTSIDE RECORDS SUMMARY | 2023-07-18 04:32 | XMS REPORT | Continuity of Care Document ---
:1985 Author Organization [facility] t Address [address] [place] [address] Care Team Providers Name Role Phone Jose LEDEZMA, Aba Live Primary Care Physician [phone] Lab, Adc Fam Pob I Attending Clinician Unavailable Norma Ritter Attending Clinician NORMA MAYEN Attending Clinician Unavailable Charla Valdez Attending Clinician CHARLA SCHULZ Attending Clinician Unavailable Doctor Unassigned, [place] Attending Clinician Unavailable ABA ELI Attending Clinician Unavailable Payers Payer Name Policy Type Policy Number Effective Date Expiration Date S ource Problems Condition Condition Condition Status Onset Resolution Last Treating Co mments Source Name Details Category Date Date Treatment Clinician Date Ruptured Ruptured Disease Active Unive rs ectopic ectopic 04-18 ity of 00:00: [address] Allergies, Adverse Reactions, Alerts Allergy Allergy Status Severity Reaction(s) Onset Inactive Treating Comm ents Source Name Type Date Date Clinician Meperidi Propensi Active Shortness of Univers ne Hcl ty to Breath 08 ity of adverse 00:: [place] reaction [address] [place] [address] MEPERIDI DRUG Active SOB Univers NE HCL INGREDI 708 ity of 00:00: [address] Family History Family Member Diagnosis Comments Start Date Stop Date Source Natural father COPD [facility] Natural father Heart disease [facility] Social History Social Habit Start Date Stop Date Quantity Comments Source History of tobacco Cigarette Smoker Taoist use Hospital Exposure to Yes University of SARS-CoV-2 (event) [facility] History of Social 2020-04-11 2020-04-[address] function 00:00:00 00:00:00 Hospital Alcohol intake 2020-04-11 2020-04-11 Current Taoist 00:00:00 00:00:00 non-drinker of Hospital alcohol (finding) Tobacco use and 2017-10-14 2017-10-14 Smokeless Taoist exposure 00:00:00 00:00:00 tobacco non-user Hospital Cigarettes smoked 2017-10-14 2017-10-[address] current [facility] - Reported Cigarette 2016-04-23 2016-04-23 University of pack-years 00:00:00 00:00:00 [facility] Sex Ass[birth year] At [birth year] Taoist 00:00:00 00:00:00 Hospital Smoking Status Start Date Stop Date Source Current every day smoker 2016-04-23 00:00:00 [facility] Medications Ordered Filled Start Stop Current Ordering Indication Dosage Frequency Signature Comments Components Source Medication Medication Date Date Medication? Clinician (SIG) Name Name scopolamine Yes 1{patch Q72H Place 1 Methodi (TRANSDERM- 6-24 } patch on st SCOP) 1 mg 00:00: the skin Hos pam over 3 days 00 every l third day. scopolamine Yes 1{patch Q72H Place 1 Methodi (TRANSDERM- 6-24 } patch on st SCOP) 1 mg 00:00: the skin Hos pam over 3 days 00 every l third day. acetaminoph Yes 1{tbl} Take 1-2 Univers en-codeine 7-08 tablets by ity of (TYLENOL 00:00: mouth [place] #3) 300-30 00 every 6 Medica l mg tablet (six) Branch hours as needed for Pain unrelieved by non-narcot ic analgesics . ibuprofen Yes 600mg Take 1 Unive rs (MOTRIN) 7-08 tablet by ity of 600 mg 00:00: mouth [place] tablet 00 every 6 Medical (six) Branch hours as needed for Pain (scale 1-3) or Pain (scale 4-6). acetaminoph Yes 1{tbl} Take 1-2 Univers en-codeine 7-08 tablets by ity of (TYLENOL 00:00: mouth [place] #3) 300-30 00 every 6 Medica l mg tablet (six) Branch hours as needed for Pain unrelieved by non-narcot ic analgesics . ibuprofen Yes 600mg Take 1 Unive rs (MOTRIN) 7-08 tablet by ity of 600 mg 00:00: mouth [place] tablet 00 every 6 Medical (six) Branch hours as needed for Pain (scale 1-3) or Pain (scale 4-6). acetaminoph Yes 1{tbl} Take 1-2 Univers en-codeine 7-08 tablets by ity of (TYLENOL 00:00: mouth [place] #3) 300-30 00 every 6 Medica l mg tablet (six) Branch hours as needed for Pain unrelieved by non-narcot ic analgesics . ibuprofen Yes 600mg Take 1 Unive rs (MOTRIN) 7-08 tablet by ity of 600 mg 00:00: mouth [place] tablet 00 every 6 Medical (six) Branch hours as needed for Pain (scale 1-3) or Pain (scale 4-6). Procedures This patient has no known procedures. Plan of Care Planned Activity Planned Date Details Comments Source Future Scheduled 2023-06-16 [facility]ACCINE (#[facility] 07:53:25 [code = COVID-19 VACCINE (#1)] Future Scheduled 2023-06-16 Screening for [facility] Test 07:53:25 malignant neoplasm of cervix (procedure) [code = 922310467] Future Scheduled 2023-06-16 INFLUENZA VACCINE (#1) [facility] Test 07:53:25 [code = INFLUENZA VACCINE (#1)] Future Scheduled 2023-01-10 INFLUENZA VACCINE [facility] Test 10:09:34 [code = INFLUENZA VACCINE] Future Scheduled 2023-01-10 COVID-19 VACCINE (#1) [facility] 10:09:34 [code = COVID-19 VACCINE (#1)] Future Scheduled 2023-01-10 Pneumococcal Vaccine: [facility] Test 10:09:34 Pediatrics (0 to 5 Years) and At-Risk Patients (6 to 64 Years) (1 - PCV) [code = Pneumococcal Vaccine: Pediatrics (0 to 5 Years) and At-Risk Patients (6 to 64 Years) (1 - PCV)] Future Scheduled 2023-01-10 Hepatitis C screening [facility] Test 10:09:34 (procedure) [code = 082310108] Future Scheduled 2023-01-10 Screening for [facility] Test 10:09:34 malignant neoplasm of cervix (procedure) [code = 868759840] Encounters Start End Encounter Admission Attending Care Care Encounter Source Date/Time Date/Time Type Type Clinicians Facility Department ID 2020-11-12 2020-11-12 Laboratory Lab, [facility] Pob I [facility] 1.2. [id number] Univers 10:23:11 10:43:11 Only Lluvia Mayenmanan Merino [id number] ity of [place] [id number] Ej as Professio [phone] [address] Office [address] 2020-11-12 2020-11-12 Outpatient Andrae [facility] [id number] Univers 10:40:00 10:40:00 NORMA itedy [facility] 2020-11-07 2020-11-07 [facility] 1.2. [id number] Univers 15:39:50 15:59:50 Only Susanne [facility] [id number] ity of [place] [id number] Ej as Professio [phone] [address] Office [address] 2020-11-07 2020-11-07 [facility] [id number] Univers 15:40:00 15:40:00 CHARLA c[facility] 2020-11-07 2020-11-07 Letter Doctor IYER [id number] Univers 00:00:00 00:00:00 (Out) Unassigned, MIN [id number] ity of [place] [facility] [id number] Ej as [phone] [address] 2020-04-11 2020-04-11 [facility] [id number] [employer] 00:00:00 00:00:00 ABA [address] Results This patient has no known results.
[2023-07-18] MEDS ORDERED: DIPHENHYDRAMINE 25 MG TAB/CAP ONE (05:09)
[2023-07-18] MEDS ORDERED: PROMETHAZINE 25 MG TABLET ONE (05:09)
[2023-07-18] MEDS ORDERED: BENZONATATE 100 MG CAP PO ONE (05:09)
[2023-07-18] MEDS ORDERED: METHYLPREDNISOLONE 125 MG INJ ONE (05:09)
[2023-07-18] MEDS ORDERED: ALBUTEROL 2.5 MG/3 ML NEB SOL ONE (05:10)
[2023-07-18] MEDS ORDERED: CODEINE 30MG/APAP 300MG TAB ONE (05:10)
[2023-07-18] MEDS ORDERED: IPRATROPIUM BROM 0.5MG/2.5ML ONE (05:11)
[2023-07-18] MEDS ORDERED: Magnesium Sulfate 2gm IVPB 2 G/50 ML BAG IV ONE (05:11)
[2023-07-18 05:14] LABS: Absolute Lymphocytes (CBC) 2.9 K/uL (0.7-4.9); Hematocrit 39.3 % (36.0-45.0); Lymphocytes % 25.9 % (15.3-44.8); MCV 77.7 fL (80-100); MPV 7.5 fL (7.6-11.3); Platelets 378 thou/uL (152-406); RBC Red Blood Cell Count 5.06 M/uL (3.86-4.86)
[2023-07-18 05:32] LABS: ALT/SGPT 13 U/L (13-56); AST/SGOT 13 U/L (15-37); Albumin 3.5 g/dL (3.4-5.0); Alkaline Phosphatase 91 U/L (45-117); BUN Blood Urea Nitrogen 13 mg/dL (7-18); Bicarbonate 24 mEq/L (21-32); Bilirubin Total 0.4 mg/dL (0.2-1.0); Creatine Phosphokinase 108 U/L (26-192); Glomerular Filtration Rate 67 ml/min (=/>90); Glucose Level 96 mg/dL (74-106); Lipase 43 U/L (13-75); Magnesium 2.1 mg/dL (1.6-2.4); NT PRO-BNP 19 pg/mL (<125); Protein, Total 8.2 g/dL (6.4-8.2); Sodium Level 137 mEq/L (136-145)
[2023-07-18 05:34] LABS: Bilirubin Direct < 0.1 mg/dL (0-0.2); Bilirubin Indirect, Calculated ND mg/dL (0.2-0.8)
--- NOTE | 2023-07-18 06:37 | EDPHYS ---
Physician Documentation [facility] Name: Yamileth Bashir Age: 37 yrs Sex: Female : 1985 Arrival Date: 07/18/2023 Time: 04:29 Bed 18 Private MD: ED Physician Uche Ricci HPI: 07/18 04:39 This 37 yrs old Female presents to ER via Unassigned with complaints of Cough.sp4 04:49 37-year-old female with history of recent COVID 2 weeks ago, presents with worsening sp4 shortness of breath, cough which is nonproductive.. Patient states that she has used some albuterol at home with some improvement but the cough is persistent, shortness of breath, no production of sputum. Denies any fever or vomiting. . 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 - Social history:: Smoking status: Patient/guardian denies using tobacco, Stopped _ months ago 1. - Family history:: not pertinent. ROS: 04:49 Constitutional: Negative for fever, chills, and weight loss, Eyes: Negative for injury, sp4 pain, redness, and discharge, Respiratory: Positive cough, dyspnea, negative sputum 04:49 All other systems are negative, Exam: 04:49 Constitutional: This is a well developed, well nourished patient who is awake, alert, sp4 and in no acute distress. Head/Face: Normocephalic, atraumatic. Eyes: Pupils equal round and reactive to light, extra-ocular motions intact. Lids and lashes normal. Conjunctiva and sclera are not injected. Cornea within normal limits. Periorbital areas with no swelling, redness, or edema. ENT: Nares patent. No nasal discharge, no septal abnormalities noted. Tympanic membranes are normal and external auditory canals are clear. Oropharynx with no redness, swelling, or masses, exudates, or evidence of obstruction, uvula midline. Mucous membranes moist. Neck: Trachea midline, no thyromegaly or masses palpated, and no cervical lymphadenopathy. Supple, full range of motion without nuchal rigidity, or vertebral point tenderness. Chest/axilla: Normal chest wall appearance and motion. Nontender with no deformity. No lesions are appreciated. Cardiovascular: Regular rate and rhythm with a normal S1 and S2. No gallops, murmurs, or rubs. Normal PMI, no JVD. No pulse deficits. Respiratory: Lungs have equal breath sounds bilaterally, positive bilateral expiratory wheezing in all lung fagan there is mild to moderate. Air movement is present in both lungs, no crackles no stridor. Positive tachypnea and persistent cough Abdomen/GI: Soft, non-tender, with normal bowel sounds. No distension or tympany. No guarding or rebound. No evidence of tenderness throughout. Back: No spinal tenderness. No costovertebral tenderness. Skin: Warm, dry with normal turgor. Normal color with no rashes, no lesions, and no evidence of cellulitis. MS/ Extremity: Pulses equal, no cyanosis. Neurovascular intact. Full, normal range of motion. Neuro: Awake and alert, GCS 15, oriented to person, place, time, and situation. Cranial nerves II-XII grossly intact. Motor strength 5/5 in all extremities. Sensory grossly intact. Psych: Awake, alert, with orientation to person, place and time. Behavior, mood, and affect are within normal limits Vital Signs: 04:39 BP 129 / 94; Pulse 90; Resp 22 S; Temp 97.8(O); Pulse Ox 100% on R/A; Weight 86.18 kg as6 (R); Height 5 ft. 3 in. (R); Pain 5/10; 06:09 BP 126 / 82; Pulse 81; Resp 22 S; Pulse Ox 100% on R/A; jw7 06:35 BP 133 / 79; Pulse 82; Resp 18 S; Pulse Ox 98% on R/A; jw7 04:39 Body Mass Index 33.66 (86.18 kg, 160.02 cm) as6 04:39 Pain Scale: Adult as6 MDM: 05:03 Patient medically screened. sp4 06:21 ED course: chest X ray - CLINICAL HISTORY: COUGH COMPARISON: None. FINDINGS: Single sp4 frontal radiograph view of the chest. Cardiomediastinal silhouette: Normal size and contour. Lungs: No consolidation, pneumothorax, or pleural effusion. Bones: No acute osseous abnormality. Upper abdomen: No abnormality identified. IMPRESSION: 1. No acute pulmonary process identified. . 06:42 Differential Diagnosis: Obstructed Airway Bronchitis Influenza Upper Respiratory sp4 Infection Sinusitis Pharyngitis Allergic Rhinitis. Data reviewed: vital signs, nurses notes, old medical records, lab test result(s), radiologic studies, plain films. Consideration of Admission/Observation Escalation of care including admission/observation considered. ED course: Patient most likely has acute bronchospasm secondary to inflammation related to recent COVID illness. Will manage as asthma attack. Patient will be prescribed albuterol every 4 hours as needed, prednisone once a day for 5 days, Tylenol with codeine and Tessalon as needed for cough. will advise follow-up visit with floorwalker in 7 to 10 days. . 07/18 04:47 Order name: BMP; Complete Time: 06:21 sp4 07/18 04:47 Order name: CBC with Diff; Complete Time: 06:21 sp4 07/18 04:47 Order name: CPK; Complete Time: 06:21 sp4 07/18 04:47 Order name: Hepatic Function; Complete Time: 06:21 sp4 07/18 04:47 Order name: Lipase; Complete Time: 06:21 sp4 07/18 04:47 Order name: Magnesium; Complete Time: 06:21 sp4 07/18 04:47 Order name: NT PRO-BNP; Complete Time: 06:21 sp4 07/18 04:48 Order name: COVID-19 SARS RT PCR; Complete Time: 06:21 sp4 07/18 04:48 Order name: Influenza Screen (a \T\ B); Complete Time: 06:21 sp4 07/18 04:47 Order name: XRAY CXR (1 view) sp4 07/18 04:47 Order name: IV Saline Lock; Complete Time: 05:11 sp4 07/18 04:47 Order name: Labs collected and sent; Complete Time: 05:10 sp4 07/18 04:47 Order name: O2 Per Protocol; Complete Time: 04:51 sp4 07/18 04:47 Order name: O2 Sat Monitoring; Complete Time: 04:51 sp4 Administered Medications: 05:11 Drug: Albuterol Inhalation 2.5 mg Inhalation every 20 minutes x3 {Note: 1st dose.} kl Route: Inhalation; 05:11 Drug: Ipratropium Inhalation Aerosol 0.5 mg Inhalation once; Every 20 min for a total kl of 3 treatments x3 {Note: 1st dose .} Route: Inhalation; 05:14 Drug: Magnesium Sulfate IVPB 2 grams IVPB once over 2 hrs Route: IVPB; Infused Over: 2 jw7 hrs; Site: right antecubital; 06:58 Follow up: Response: No adverse reaction; IV Status: Completed infusion; IV Intake: [id number] 05:14 Drug: Tessalon Perle PO 200 mg PO once Route: PO; jw7 06:20 Follow up: Response: No adverse reaction jw7 05:14 Drug: diphenhydrAMINE PO 25 mg PO once Route: PO; jw7 06:20 Follow up: Response: No adverse reaction jw7 05:14 Drug: Promethazine PO 25 mg PO once Route: PO; jw7 06:20 Follow up: Response: No adverse reaction jw7 05:15 Drug: MethylPrednisoLONE IVP 125 mg IVP once Route: IVP; Site: right antecubital; jw7 06:20 Follow up: Response: No adverse reaction; Marked relief of symptoms jw7 05:46 Drug: Albuterol Inhalation 2.5 mg Inhalation every 20 minutes x3 Route: Inhalation; jw7 05:46 Drug: Ipratropium Inhalation Aerosol 0.5 mg Inhalation once; Every 20 min for a total jw7 of 3 treatments x3 Route: Inhalation; 05:46 Drug: Acetaminophen-Codeine PO (300 mg-30 mg) 2 tabs PO once; RASS on ADMIN: Combtv4, jw7 Very Agttd3, Agttd2, Rstlss1, AlertClm0, Drwsy-1, Lt Sdtn-2, Mod Sdtn-3, Dp Sdtn-4, UnArsble-5 Route: PO; 06:20 Follow up: Response: No adverse reaction jw7 06:23 Drug: Albuterol Inhalation 2.5 mg Inhalation every 20 minutes x3 Route: Inhalation; jw7 06:23 Follow up: Response: No adverse reaction; Marked relief of symptoms jw7 06:23 Drug: Ipratropium Inhalation Aerosol 0.5 mg Inhalation once; Every 20 min for a total jw7 of 3 treatments x3 Route: Inhalation; 06:23 Follow up: Response: No adverse reaction; Marked relief of symptoms jw7 Disposition Summary: 07/18/23 06:37 Discharge Ordered Problem: new sp4 Symptoms: have improved sp4 Condition: Stable sp4 Diagnosis - Wheezing sp4 - Acute bronchospasm sp4 Followup: sp4 - With: Samy Sinclair MD - When: 10 - 14 days - Reason: Recheck today's complaints Discharge Instructions: - Discharge Summary Sheet sp4 - Bronchospasm, Adult, [id number] sp4 Forms: - Work release form eb - Patient Portal Instructions sp4 Prescriptions: - acetaminophen-codeine 120-12 mg/5 mL Oral solution - take 5 milliliter ORAL route every 6 hours PRN cough; 120 milliliter; Refills: sp4 0, Product Selection Permitted - Tessalon Perles 100 mg Oral capsule - take 1 capsule ORAL route every 6 hours As needed PRN cough; 30 capsule; sp4 Refills: 0, Product Selection Permitted - Albuterol Sulfate 2.5 mg /3 mL (0.083 %) Inhalation Solution for Nebulization - inhale 1 unit NEBULIZATION route every 4 hours As needed Dispense 50 respules sp4 or 2 boxes, Dispense with Nebulizer and mask, Use 1 respule nebulized PRN dyspnea or wheezing; 50 unit; Refills: 0, Product Selection Permitted - Prednisone 20 mg Oral Tablet - take 2 tablets ORAL route once daily for 5 days; 10 tablet; Refills: 0, Product sp4 Selection Permitted Signatures: Dispatcher [employer] May Patricio RN RN kl Slawson, Ashby, RN RN as6 Jessie Baker RN RN jw7 Uche Ricci MD MD sp4
--- NOTE | 2023-07-18 06:37 | ER ---
Nurse's Notes [facility] Name: Yamileth Bashir Age: 37 yrs Sex: Female : 1985 Arrival Date: 07/18/2023 Time: 04:29 Bed 18 Private MD: Diagnosis: Wheezing;Acute bronchospasm Presentation: 07/18 04:40 Chief complaint: Patient states: cough, SOB, sore throat, fatigue x1 week. Coronavirus as6 screen: At this time, the client does not indicate any symptoms associated with coronavirus-19. Ebola Screen: No symptoms or risks identified at this time. Initial Sepsis Screen: Does the patient meet any 2 criteria? No. Patient's initial sepsis screen is negative. Does the patient have a suspected source of infection? No. Patient's initial sepsis screen is negative. Risk Assessment: Do you want to hurt yourself or someone else? Patient reports no desire to harm self or others. Onset of symptoms was July 12, 2023. 04:40 Acuity: SORAYA 3 as6 04:40 Method Of Arrival: Ambulatory as6 Triage Assessment: 04:44 General: Appears in no apparent distress. uncomfortable, Behavior is calm, cooperative. jw7 Pain: Complains of pain in throat Pain does not radiate. Pain currently is 4 out of 10 on a pain scale. Quality of pain is described as burning, gnawing, stinging, Is continuous. EENT: Throat is reddened. Neuro: Level of Consciousness is awake, alert, obeys commands, Oriented to person, place, time, situation. Cardiovascular: Capillary refill < 3 seconds Clubbing of nail beds is absent JVD is absent Patient's skin is warm and dry. Respiratory: Airway is patent Trachea midline Respiratory effort is even, unlabored, Respiratory pattern is regular, symmetrical, Breath sounds with wheezes bilaterally. GI: No signs and/or symptoms were reported involving the gastrointestinal system. Abdomen is round non-distended. : No deficits noted. No signs and/or symptoms were reported regarding the genitourinary system. Derm: Skin is intact, is healthy with good turgor, Skin is dry, Skin is normal, Skin temperature is warm. Musculoskeletal: Circulation, motion, and sensation intact. Range of motion: intact in all extremities. 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 - Social history:: Smoking status: Patient/guardian denies using tobacco, Stopped _ months ago 1. - Family history:: not pertinent. Screenin:43 [facility] ED Fall Risk Assessment (Adult) History of falling in the last 3 months, jw7 including since admission No falls in past 3 months (0 pts) Score/Fall Risk Level 0 - 2 = Low Risk. Abuse screen: Denies threats or abuse. Denies injuries from another. Nutritional screening: No deficits noted. Tuberculosis screening: No symptoms or risk factors identified. Assessment: 04:46 General: see triage assessment. jw7 05:50 Reassessment: Patient appears in no apparent distress at this time. Patient and/or 7 family updated on plan of care and expected duration. Pain level reassessed. Patient is alert, oriented x 3, equal unlabored respirations, skin warm/dry/pink. Patient states feeling better. Patient states symptoms have improved. 06:50 Reassessment: Patient appears in no apparent distress at this time. No changes from jw7 previously documented assessment. Patient and/or family updated on plan of care and expected duration. Pain level reassessed. Patient is alert, oriented x 3, equal unlabored respirations, skin warm/dry/pink. Vital Signs: 04:39 BP 129 / 94; Pulse 90; Resp 22 S; Temp 97.8(O); Pulse Ox 100% on R/A; Weight 86.18 kg as6 (R); Height 5 ft. 3 in. (R); Pain 5/10; 06:09 BP 126 / 82; Pulse 81; Resp 22 S; Pulse Ox 100% on R/A; jw7 06:35 BP 133 / 79; Pulse 82; Resp 18 S; Pulse Ox 98% on R/A; jw7 04:39 Body Mass Index 33.66 (86.18 kg, 160.02 cm) as6 04:39 Pain Scale: Adult as6 ED Course: 04:32 Patient arrived in ED. ag3 04:35 Waits, Jessie, RN is Primary Nurse. jw7 04:39 Uche Ricci MD is Attending Physician. sp4 04:40 Arm band placed on. as6 04:41 Triage completed. as6 04:43 Patient has correct armband on for positive identification. Bed in low position. Call jw7 light in reach. 05:10 Inserted saline lock: 20 gauge in right antecubital area, using aseptic technique. kl Blood collected. 05:11 BMP Sent. kl 05:11 CBC with Diff Sent. kl 05:11 CPK Sent. kl 05:11 Hepatic Function Sent. kl 05:11 Lipase Sent. kl 05:11 Magnesium Sent. kl 05:11 NT PRO-BNP Sent. kl 05:24 XRAY CXR (1 view) In Process Unspecified. EDMS 06:09 No provider procedures requiring assistance completed. jw7 06:35 Samy Sinclair MD is Referral Physician. sp4 06:58 Provided Education on: discharge instructions, and medication usage. jw7 06:58 IV discontinued, intact, bleeding controlled, No redness/swelling at site. Pressure jw7 dressing applied. Administered Medications: 05:11 Drug: Albuterol Inhalation 2.5 mg Inhalation every 20 minutes x3 {Note: 1st dose.} kl Route: Inhalation; 05:11 Drug: Ipratropium Inhalation Aerosol 0.5 mg Inhalation once; Every 20 min for a total kl of 3 treatments x3 {Note: 1st dose .} Route: Inhalation; 05:14 Drug: Magnesium Sulfate IVPB 2 grams IVPB once over 2 hrs Route: IVPB; Infused Over: 2 jw7 hrs; Site: right antecubital; 06:58 Follow up: Response: No adverse reaction; IV Status: Completed infusion; IV Intake: [id number] 05:14 Drug: Tessalon Perle PO 200 mg PO once Route: PO; jw7 06:20 Follow up: Response: No adverse reaction jw7 05:14 Drug: diphenhydrAMINE PO 25 mg PO once Route: PO; jw7 06:20 Follow up: Response: No adverse reaction jw7 05:14 Drug: Promethazine PO 25 mg PO once Route: PO; jw7 06:20 Follow up: Response: No adverse reaction jw7 05:15 Drug: MethylPrednisoLONE IVP 125 mg IVP once Route: IVP; Site: right antecubital; jw7 06:20 Follow up: Response: No adverse reaction; Marked relief of symptoms jw7 05:46 Drug: Albuterol Inhalation 2.5 mg Inhalation every 20 minutes x3 Route: Inhalation; jw7 05:46 Drug: Ipratropium Inhalation Aerosol 0.5 mg Inhalation once; Every 20 min for a total jw7 of 3 treatments x3 Route: Inhalation; 05:46 Drug: Acetaminophen-Codeine PO (300 mg-30 mg) 2 tabs PO once; RASS on ADMIN: Combtv4, jw7 Very Agttd3, Agttd2, Rstlss1, AlertClm0, Drwsy-1, Lt Sdtn-2, Mod Sdtn-3, Dp Sdtn-4, UnArsble-5 Route: PO; 06:20 Follow up: Response: No adverse reaction jw7 06:23 Drug: Albuterol Inhalation 2.5 mg Inhalation every 20 minutes x3 Route: Inhalation; jw7 06:23 Follow up: Response: No adverse reaction; Marked relief of symptoms jw7 06:23 Drug: Ipratropium Inhalation Aerosol 0.5 mg Inhalation once; Every 20 min for a total jw7 of 3 treatments x3 Route: Inhalation; 06:23 Follow up: Response: No adverse reaction; Marked relief of symptoms jw7 Medication: 06:09 VIS not applicable for this client. jw7 Intake: 06:58 IV: 50ml; Total: 50ml. jw7 Outcome: 06:37 Discharge ordered by . sp4 06:57 Discharged to home ambulatory, with family, jw7 06:57 Condition: stable 06:57 Discharge instructions given to patient, Instructed on discharge instructions, follow up and referral plans. medication usage, Demonstrated understanding of instructions, follow-up care, medications, Prescriptions given X 4, 06:59 Patient left the ED. jw7 Signatures: Dispatcher [employer] EDMS May Biswas RN RN kl Gomez, Alice ag3 Melchor Costa RN RN as6 Jessie Baker RN RN jw7 Uche Ricci MD MD sp4
[2023-07-18 07:19] VITALS: TEMP 97.8
[2023-07-18 07:35] VITALS: BP 133/79; O2SAT 98
--- NOTE | 2023-07-18 20:11 | RAD REPORT ---
EXAM DESCRIPTION: Chest Single View CLINICAL HISTORY: COUGH COMPARISON: None. FINDINGS: Single frontal radiograph view of the chest. Cardiomediastinal silhouette: Normal size and contour. Lungs: No consolidation, pneumothorax, or pleural effusion. Bones: No acute osseous abnormality. Upper abdomen: No abnormality identified. IMPRESSION: 1. No acute pulmonary process identified. Electronically signed by: Urban Mejia 07/18/2023 5:32 AM CDT Due to temporary technical issues with the PACS/Fluency reporting system, reports are being signed by the in house radiologists without review as a courtesy to insure prompt reporting. The interpreting radiologist is fully responsible for the content of the report.
== END 2023-07-18 06:59 | disposition home or self-care (01) ==
LOC: ER 04:29
DX: J98.01 Acute bronchospasm (principal); R05.9 Cough, unspecified; R06.02 Shortness of breath; Z86.16 Personal history of COVID-19; Z20.822 Contact with and (suspected) exposure to COVID-19
CPT/HCPCS: 36415; 71045; 80048; 80076; 82550; 83690; 83735; 83880; 85025; 87635; 87804; 96365; 96366; 96375; 99285; J2930; J3475; J7613; J7644; Q0169

== ENCOUNTER 2024-04-01 20:18 | Emergency (ER) | payer SELFPAY ==
[2024-04-01] MEDS ORDERED: METHYLPREDNISOLONE 125 MG INJ ONE (20:22)
[2024-04-01] MEDS ORDERED: EPINEPHRINE 1 MG/ML VIAL ONE (20:22)
[2024-04-01] MEDS ORDERED: FAMOTIDINE 20 MG/2 ML VIAL IV ONE (20:22)
[2024-04-01] MEDS ORDERED: ALBUTEROL 2.5 MG/3 ML NEB SOL ONE (20:27)
[2024-04-01] MEDS ORDERED: NA CHLORIDE 0.9% 1,000 ML ONE (20:27)
[2024-04-01 20:41] LABS: Absolute Basophils 0.1 K/uL (0-0.5); Absolute Eosinophils 0.2 K/uL (0-0.5); Absolute Lymphocytes (CBC) 3.2 K/uL (0.7-4.9); Absolute Monocytes 1.6 K/uL (0.1-1.3); Absolute Neutrophil 6.7 K/uL (1.8-8.0); Basophils % 0.5 % (0-1.3); Eosinophils % 1.9 % (0-4.4); Hematocrit 39.1 % (36.0-45.0); Hemoglobin 12.7 g/dL (12.0-15.0); MCH 24.1 pg (27.0-35.0); MCHC 32.6 g/dL (32.0-36.0); MCV 74.1 fL (80-100); MPV 7.8 fL (7.6-11.3); Monocytes % 13.5 % (3.3-12.3); Neutrophils % 57.1 % (41.7-73.7); Platelets 437 thou/uL (152-406); RBC Red Blood Cell Count 5.27 M/uL (3.86-4.86); Red Cell Distribution Width 15.8 % (12.1-15.2)
[2024-04-01 20:58] LABS: Albumin 3.6 g/dL (3.4-5.0); Albumin/Globulin Ratio 0.8 (1.1-1.8); Anion Gap 6.2 mEq/L (5.0-15.0); Bilirubin Total 0.4 mg/dL (0.2-1.0); Globulin 4.6 g/dL (2.3-3.5); Potassium 3.2 mEq/L (3.5-5.1); Protein, Total 8.2 g/dL (6.4-8.2)
[2024-04-01 21:11] LABS: Specific Gravity 1.005 (1.005-1.030); Urine Bacteria <20 /HPF (<20); Urine Bilirubin NEGATIVE (Negative); Urine Blood Negative (Negative); Urine Clarity Extremely Turbid (Clear); Urine Color Colorless (Yellow); Urine Culture Reflex Order NOT NEEDED; Urine Glucose NEGATIVE (Negative); Urine Ketones NEGATIVE (Negative); Urine Micro Reflex YN NO BILL MICROSCOPIC; Urine Mucus Slight /HPF (None Seen); Urine Nitrite NEGATIVE (Negative); Urine Protein NEGATIVE (Negative); Urine RBC <5 /HPF (None Seen); Urine Urobilinogen Normal (Normal); Urine WBC <5 /HPF (<5)
[2024-04-01 21:12] LABS: Specific Gravity 1.005 (1.005-1.030)
--- NOTE | 2024-04-01 22:15 | EDPHYS ---
Physician Documentation [facility] Name: Yamileth Bashir Age: 38 yrs Sex: Female : 1985 Arrival Date: 04/01/2024 Time: 20:18 Bed 4 Private MD: ED Physician Uche Ricci HPI: 04/01 20:30 This 38 yrs old Female presents to ER via Ambulatory with complaints of Allergic cp Reaction. 20:30 The patient presents with difficulty swallowing. Onset: The symptoms/episode cp began/occurred suddenly. Associated signs and symptoms: Pertinent positives: shortness of breath. Possible causes: seafood. At home the patient or guardian has treated the symptoms with oral liquid benadryl. Severity of symptoms: in the emergency department the symptoms are worse moderately. 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 Flu vaccine is not up to date. - Infectious Disease History:: Denies. - Social history:: Smoking status: Patient reports the use of cigarette tobacco products, smokes one pack cigarettes per day. ROS: 20:35 Constitutional: HX per HPI cp 20:35 Constitutional: Negative for fever, cp 20:35 ENT: Positive for difficulty swallowing, 20:35 Cardiovascular: Negative for chest pain, 20:35 Respiratory: Positive for shortness of breath, at rest. 20:35 Skin: Negative for rash, 20:35 Neuro: Negative for altered mental status, dizziness, headache, weakness, 20:35 All other systems are negative, Exam: 20:40 Constitutional: The patient appears in no acute distress, alert, awake, cp non-diaphoretic, non-toxic, well developed, well nourished, 20:40 Head/Face: Normocephalic, atraumatic. cp 20:40 Eyes: Periorbital structures: appear normal, Conjunctiva: normal, no exudate, no injection, Sclera: no appreciated abnormality, Lids and lashes: appear normal, bilaterally, 20:40 ENT: External ear(s): are unremarkable, Nose: is normal, Mouth: Lips: moist, Oral mucosa: pink and intact, moist, Posterior pharynx: Airway: no evidence of obstruction, patent, 20:40 Chest/axilla: Inspection: normal, 20:40 Cardiovascular: Rate: normal, Rhythm: regular, 20:40 Respiratory: the patient does not display signs of respiratory distress, Respirations: normal, no use of accessory muscles, no retractions, labored breathing, is not present, Breath sounds: are clear throughout, no decreased breath sounds, no stridor, no wheezing, 20:40 Abdomen/GI: Inspection: abdomen appears normal, Palpation: abdomen is soft and non-tender, in all quadrants, 20:40 Skin: no rash present. Vital Signs: 20:35 BP 146 / 104; Pulse 96; Resp 16; Pulse Ox 100% ; Weight 97.52 kg; Height 5 ft. 3 in. ; vc1 Pain 0/10; 21:00 BP 124 / 76; Pulse 88; Resp 17; Pulse Ox 99% on R/A; Pain 0/10; al5 21:51 BP 135 / 72; Pulse 90; Resp 16; Pulse Ox 100% ; Pain 0/10; al5 22:55 BP 121 / 64; Pulse 88; Resp 20; Temp 98; Pulse Ox 100% on R/A; Pain 0/10; kd4 20:35 Body Mass Index 38.09 (97.52 kg, 160.02 cm) vc1 20:35 Pain Scale: Adult vc1 21:00 Pain Scale: Adult al5 21:51 Pain Scale: Adult al5 22:55 Pain Scale: Adult kd4 MDM: 20:23 Patient medically screened. 20:30 Differential diagnosis: anaphylaxis, angioedema, urticaria. 22:15 Data reviewed: vital signs, nurses notes, and as a result, I will discharge patient. 22:15 I considered the following discharge prescriptions or medication management in the emergency department Medications were administered in the Emergency Department. See MAR. Counseling: I had a detailed discussion with the patient and/or guardian regarding the historical points, exam findings, and any diagnostic results supporting the discharge/admit diagnosis, to return to the emergency department if symptoms worsen or persist or if there are any questions or concerns that arise at home. Response to treatment: the patient's symptoms have markedly improved after treatment, and as a result, I will discharge patient. 04/01 20: Order name: CBC with Diff; Complete Time: 22:18 cp 04/01 22:19 Interpretation: Normal except: WBC 11.80; RBC 5.27; MCV 74.1; MCH 24.1; PLT 437; RDW cp 15.8; MN% 13.5; MNA 1.6. 04/01 20: Order name: CMP; Complete Time: 22:18 cp 04/01 22:19 Interpretation: Normal except: K 3.2; CRE 1.18; GFR 60; AST 11; GLOB 4.6; A/G 0.8. cp 04/01 20: Order name: Urinalysis W/Microscopic; Complete Time: 22:18 cp 04/01 20:26 Order name: Test, Urine; Complete Time: 22:18 cp 04/01 20:26 Order name: IV; Complete Time: 20:34 cp Administered Medications: 20:26 Drug: EPINEPHrine 1:1000 Sub-Q 1:1,000 0.3 ml Sub-Q once Route: Sub-Q; Site: left thigh;cm10 22:55 Follow up: Response: No adverse reaction kd4 22:56 Follow up: Response: No adverse reaction; Marked relief of symptoms al5 20:33 Drug: MethylPrednisoLONE IVP 125 mg IVP once Route: IVP; Site: left antecubital; cm10 22:55 Follow up: Response: No adverse reaction kd4 20:33 Drug: Famotidine IVP 20 mg IVP once; dilute with 10 mL 0.9% NaCl; give over 2 minutes cm10 Route: IVP; Site: left antecubital; 22:54 Follow up: Response: No adverse reaction kd4 22:56 Follow up: Response: No adverse reaction al5 20:33 Drug: NS 0.9% IV 1000 ml IV at 1 bolus Per protocol; 1000 mL bolus Route: IV; Rate: 1 cm10 bolus; Site: left antecubital; 22:56 Follow up: Response: No adverse reaction; IV Status: Completed infusion al5 20:33 Drug: Albuterol Inhalation 2.5 mg Inhalation every 20 minutes x3 Route: Inhalation; cm10 22:55 Follow up: Response: No adverse reaction; Marked relief of symptoms al5 22:54 Drug: Potassium PO Effervescent Tablet 50 mEq PO once; dissolve in 4 ounces of water or kd4 juice Route: PO; 22:55 Follow up: Response: No adverse reaction kd4 Disposition Summary: 04/01/24 22:15 Discharge Ordered Notes: Location: Home cp Problem: new cp Symptoms: have improved cp Condition: Stable cp Diagnosis - Allergy to seafood cp Followup: cp - With: Private Physician - When: 2 - 3 days - Reason: Recheck today's complaints Discharge Instructions: - Discharge Summary Sheet cp - Seafood Allergy cp Forms: - Medication Reconciliation Form cp - Antibiotic Education cp - Prescription Opioid Use cp - Patient Portal Instructions cp - Leadership Thank You Letter cp Prescriptions: - epinephrine 0.15 mg/0.3 mL Injection Auto-Injector - administer 0.3 milliliter INTRAMUSCULAR route every 10 minutes as needed for cp anaphylaxis; 2 pen; Refills: 0, Product Selection Permitted - Pepcid 20 mg Oral Tablet - take 1 tablet ORAL route every 12 hours for 5 days; 10 tablet; Refills: 0, cp Product Selection Permitted - Prednisone 20 mg Oral Tablet - take 3 tablets ORAL route once daily for 5 days; 15 tablet; Refills: 0, Product cp Selection Permitted Addendum: 04/03/2024 00:21 Co-signature as Attending Physician, Uche Ricci MD I agree with the assessment s p4 and plan of care. I reviewed the patient's care provided by the Advanced Practice Provider and agree with the diagnosis and treatment plan. Signatures: Dispatcher [employer] EDDE Ta Ashford PA PA cp Hallie Stanton RN RN vc1 Uche Ricci MD MD sp4 Thu Gonzalez RN RN cm10 Sylvester García RN RN kd4 Mandi Marcos RN al5
--- NOTE | 2024-04-01 22:15 | ER ---
Nurse's Notes [facility] Name: Yamileth Bashir Age: 38 yrs Sex: Female : 1985 Arrival Date: 04/01/2024 Time: 20:18 Bed 4 Private MD: Diagnosis: Allergy to seafood Presentation: 04/01 20:35 Chief complaint: Patient states: was eating seafood at [facility] and my tongue vc1 started swelling. Coronavirus screen: Client denies travel out of the [place] in the last 14 days. At this time, the client does not indicate any symptoms associated with coronavirus-19. Ebola Screen: Patient negative for fever greater than or equal to 101.5 degrees Fahrenheit, and additional compatible Ebola Virus Disease symptoms Patient denies exposure to infectious person. Patient denies travel to an Ebola-affected area in the 21 days before illness onset. No symptoms or risks identified at this time. Onset: The symptoms/episode began/occurred acutely, suddenly, just prior to arrival, today. Anaphylaxis evaluation, the patient reports or I have noted the following symptoms which indicate a significant risk of anaphylaxis: . The patient has been moved to a treatment room and the charge nurse or attending physician has been notified. Initial Sepsis Screen: Does the patient meet any 2 criteria? No. Patient's initial sepsis screen is negative. Does the patient have a suspected source of infection? No. Patient's initial sepsis screen is negative. Risk Assessment: Do you want to hurt yourself or someone else? Patient reports no desire to harm self or others. Onset of symptoms was April 01, 2024. 20:35 Method Of Arrival: Ambulatory vc1 20:35 Acuity: SORAYA 2 vc1 Triage Assessment: 20:40 General: Appears in no apparent distress. Behavior is anxious. Pain: Denies pain. EENT: vc1 Reports tongue swelling. Neuro: Level of Consciousness is awake, alert, obeys commands, Oriented to person, place, time, situation, Appropriate for age. Cardiovascular: Capillary refill < 3 seconds Patient's skin is warm and dry. Respiratory: Airway is compromised Respiratory effort is even, unlabored, Respiratory pattern is regular, symmetrical. Derm: Skin is intact, is healthy with good turgor, Skin is pink, warm \T\ dry. 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 Flu vaccine is not up to date. - Infectious Disease History:: Denies. - Social history:: Smoking status: Patient reports the use of cigarette tobacco products, smokes one pack cigarettes per day. Screenin:41 [facility] ED Fall Risk Assessment (Adult) History of falling in the last 3 months, vc1 including since admission No falls in past 3 months (0 pts) Confusion or Disorientation No (0 pts) Intoxicated or Sedated No (0 pts) Impaired Gait No (0 pts) Mobility Assist Device Used No (0 pt) Altered Elimination No (0 pt) Score/Fall Risk Level 0 - 2 = Low Risk Oriented to surroundings, Maintained a safe environment, Educated pt \T\ family on fall prevention, incl call for assistance when getting out of bed. Abuse screen: Denies threats or abuse. Nutritional screening: No deficits noted. Tuberculosis screening: No symptoms or risk factors identified. Assessment: 20:40 Respiratory: Airway is compromised Trachea midline Respiratory effort is even, al5 unlabored, Respiratory pattern is regular, symmetrical. 21:04 Reassessment: Patient appears in no apparent distress at this time. Patient and/or al5 family updated on plan of care and expected duration. Pain level reassessed. Patient is alert, oriented x 3, equal unlabored respirations, skin warm/dry/pink. Patient states feeling better. Patient states symptoms have improved. Respiratory: patient able to swallow without complication. 22:56 Respiratory: Breath sounds are clear bilaterally. kd4 Vital Signs: 20:35 BP 146 / 104; Pulse 96; Resp 16; Pulse Ox 100% ; Weight 97.52 kg; Height 5 ft. 3 in. ; vc1 Pain 0/10; 21:00 BP 124 / 76; Pulse 88; Resp 17; Pulse Ox 99% on R/A; Pain 0/10; al5 21:51 BP 135 / 72; Pulse 90; Resp 16; Pulse Ox 100% ; Pain 0/10; al5 22:55 BP 121 / 64; Pulse 88; Resp 20; Temp 98; Pulse Ox 100% on R/A; Pain 0/10; kd4 20:35 Body Mass Index 38.09 (97.52 kg, 160.02 cm) vc1 20:35 Pain Scale: Adult vc1 21:00 Pain Scale: Adult al5 21:51 Pain Scale: Adult al5 22:55 Pain Scale: Adult kd4 ED Course: 20:22 Patient arrived in ED. cm10 20:23 Ta Ashford PA is PHCP. cp 20:23 Uche Ricci MD is Attending Physician. cp 20:23 Inserted saline lock: 18 gauge in left antecubital area, using aseptic technique. cm10 20:38 CMP Sent. al5 20:38 CBC with Diff Sent. al5 20:39 Triage completed. vc1 20:42 Patient has correct armband on for positive identification. Bed in low position. Call vc1 light in reach. bus monitor on. Pulse ox on. NIBP on. 21:00 No provider procedures requiring assistance completed. al5 21:05 Mandi Marcos, RN is Primary Nurse. al5 22:57 IV discontinued, discharged. kd4 22:57 Provided Education on: d/c teaching. kd4 22:58 Arm band placed on Patient d/c. kd4 Administered Medications: 20:26 Drug: EPINEPHrine 1:1000 Sub-Q 1:1,000 0.3 ml Sub-Q once Route: Sub-Q; Site: left thigh;cm10 22:55 Follow up: Response: No adverse reaction kd4 22:56 Follow up: Response: No adverse reaction; Marked relief of symptoms al5 20:33 Drug: MethylPrednisoLONE IVP 125 mg IVP once Route: IVP; Site: left antecubital; cm10 22:55 Follow up: Response: No adverse reaction kd4 20:33 Drug: Famotidine IVP 20 mg IVP once; dilute with 10 mL 0.9% NaCl; give over 2 minutes cm10 Route: IVP; Site: left antecubital; 22:54 Follow up: Response: No adverse reaction kd4 22:56 Follow up: Response: No adverse reaction al5 20:33 Drug: NS 0.9% IV 1000 ml IV at 1 bolus Per protocol; 1000 mL bolus Route: IV; Rate: 1 cm10 bolus; Site: left antecubital; 22:56 Follow up: Response: No adverse reaction; IV Status: Completed infusion al5 20:33 Drug: Albuterol Inhalation 2.5 mg Inhalation every 20 minutes x3 Route: Inhalation; cm10 22:55 Follow up: Response: No adverse reaction; Marked relief of symptoms al5 22:54 Drug: Potassium PO Effervescent Tablet 50 mEq PO once; dissolve in 4 ounces of water or kd4 juice Route: PO; 22:55 Follow up: Response: No adverse reaction kd4 Medication: 22:58 VIS not applicable for this client. kd4 Outcome: 22:15 Discharge ordered by . caroline 22:56 Discharged to home kd4 22:56 Discharged to home ambulatory, 22:56 Condition: good 22:56 Discharge instructions given to patient, Instructed on discharge instructions, Demonstrated understanding of instructions, follow-up care, medications, Prescriptions given X 3, 22:59 Patient left the ED. kd4 Signatures: Ta Ashford PA PA cp Calcote, Vanessa RN RN vc1 Thu Gonzalez RN RN cm10 Sylvester García RN RN kd4 Mandi Marcos RN RN al5
[2024-04-01] MEDS ORDERED: POTASSIUM 25 MEQ EFFERV TAB ONE (22:49)
[2024-04-01 23:31] VITALS: BP 121/64; TEMP 98; O2SAT 100
== END 2024-04-01 22:59 | disposition home or self-care (01) ==
LOC: ER 20:18
DX: T78.1XXA Other adverse food reactions, not elsewhere classified, initial encounter (principal); R13.10 Dysphagia, unspecified; F17.210 Nicotine dependence, cigarettes, uncomplicated
CPT/HCPCS: 36415; 80053; 81001; 81025; 85025; 96361; 96372; 96374; 96375; 99285; J0171; J2919; J7030; J7613